=== PATIENT | male | born 1990 | race Two or more races ===

== ENCOUNTER 2023-12-03 00:06 | Emergency (ER) | payer MEDICAID ==
[~2023-12-03] VITALS: Ht 185.4 cm; Wt 127.0 kg
[2023-12-03 00:26] VITALS: BP 147/94; PULSE 107; RESP 18; O2SAT 97
[2023-12-03] MEDS ORDERED: ACETAMINOPHEN 325 MG TAB PO ONE (01:30)
== END 2023-12-03 01:32 | disposition left against medical advice (07) ==
LOC: EDBD 00:06 → ER 00:06
DX: S00.83XA Contusion of other part of head, initial encounter (principal); F10.129 Alcohol abuse with intoxication, unspecified; Y90.8 Blood alcohol level of 240 mg/100 ml or more; Z53.21 Procedure and treatment not carried out due to patient leaving prior to being seen by health care provider; X58.XXXA Exposure to other specified factors, initial encounter; Y93.89 Activity, other specified; Y92.89 Other specified places as the place of occurrence of the external cause; Y99.8 Other external cause status